=== PATIENT | male | born 1950 | race Caucasian/White ===

== ENCOUNTER 2018-11-08 12:23 | Emergency (ER) | payer MEDICARE ==
[2018-11-08] MEDS ORDERED: NS(*) 0.9% 1000 ML BAG 1,000 ML IV ONE (12:29)
[2018-11-08] MEDS ORDERED: ASPIRIN 81 MG CHEW PO ONE (12:30)
[2018-11-08] MEDS ORDERED: STEMI KIT(*) 0 EA ONE (12:33)
--- NOTE | 2018-11-08 12:36 | EKG ---
[place]AC[place] [facility] [place] NAME: ROGER DE : [id number] MR: [id number] V: [id number] EXAM DATE: ORDERING PHYSICIAN: KATHARINE VAUGHN TECHNOLOGIST: Test Reason : Blood Pressure : / mmHG Vent. Rate : 105 BPM Atrial Rate : 105 BPM P-R Int : 184 ms QRS Dur : 126 ms QT Int : 368 ms P-R-T Axes : 057 147 049 degrees QTc Int : 486 ms Sinus tachycardia Right bundle branch block Left posterior fascicular block Bifascicular block Inferior infarct , possibly acute ACUTE NV Abnormal ECG No previous ECGs available Confirmed by KELLI ARCHULETA ([id number]) on 11/08/2018 3:04:43 PM Referred By: Confirmed By:KELLI ARCHULETA
--- NOTE | 2018-11-08 12:43 | ER Report ---
History and Physical Time Seen By MD: 12:30 HPI/ROS CHIEF COMPLAINT: Chest pain HISTORY OF PRESENT ILLNESS: 68-year-old male patient presents to emergency room with complaint of chest pain. Patient states that he started having chest pain this morning when he woke up. Patient states he started having some discomfort with breathing last night starting about 10:30 or 11. He states that he felt significant worse when he was lying down. He says he feels better when he sitting up. He states that there is not been anything that seems to make the pain better or worse since this morning. He did go see a primary care provider, as he is trying to avoid coming to the emergency room. However he was referred to the emergency room. Patient denies any fevers, chills, nausea, vomiting or diaphoresis. Patient states he has not taken any medication for this. He did take some medication for his blood pressure prior to arrival. REVIEW OF SYSTEMS: Respiratory: No cough, no dyspnea. Cardiovascular: As noted above Gastrointestinal: No vomiting, no abdominal pain. Musculoskeletal: No back pain. Allergies: Coded Allergies: No Known Drug Allergies (Unverified , 05/28/14) Home Meds Active Scripts Lisinopril (LISINOPRIL) 20 Mg Tablet, 1 TAB PO QDAY, #90 TAB 3 Refills Prov:MARSHA OJEDA MD 07/06/18 Simvastatin (SIMVASTATIN) 40 Mg Tablet, 1 TAB PO QHS, #90 TAB 3 Refills Prov:MARSHA OJEDA MD 07/06/18 Discontinued Scripts Ketoconazole (KETOCONAZOLE) 15 Gm Cream..g., 1 JERAMIE TP BID for 30 Days, #1 TUBE 2 Refills Prov:YULISSA RIVERA NPC 08/03/18 Triamcinolone Acetonide 0.1% Oint 15 Gm Tube (TRIAMCINOLONE ACETONIDE 0.1% 15 GM TUBE) 15 Gm Oint...g., 30 GM TP BID for 30 Days, #1 TUBE 2 Refills Prov:YULISSA RIVERA NPC 08/03/18 Hydrocortisone 2.5 % 30 GM CREAM (Hydrocortisone 2.5 % 30 GM CREAM) 2.5 % Cream.appl, 1 JERAMIE TP BID for 30 Days, #1 GM 1 Refill Prov:YULISSA RIVERA NPC 06/26/18 Clobetasol Propionate (CLOBETASOL PROPIONATE) 15 Gm Oint...g., 1 JERAMIE TP BID for 30 Days, #60 G 1 Refill Prov:YULISSA RIVERA NPC 02/09/18 Econazole Nitrate (ECONAZOLE NITRATE) 15 Gm Cream..g., 1 APPLIC TOP BID for 30 Days, #85 GM 1 Refill Prov:YULISSA RIVERA NPC 07/04/17 Ammonium Lactate (Ammonium Lactate) 12 % Lotion, 1 JERAMIE TOP BID PRN for dry skin, #1 BOTTLE 1 Refill Prov:MARSHA OJEDA MD 03/08/17 Past Medical/Surgical History Patient has a past medical history of hypertension, hyperlipidemia, anxiety, alcohol use, marijuana use. Patient denies any surgical history. Reviewed Nurses Notes: Yes Smoking Status: Current: Every Day Smoker Exposure to Second Hand Smoke?: Yes Constitutional Vital Sign - Last 24 Hours 11/08/18 11/08/18 11/08/18 11/08/18 12:23 12:27 12:28 12:33 Pulse ??? 108 103 Resp 10 B/P (MAP) 162/96 (118) Pulse Ox 90 94 11/08/18 11/08/18 11/08/18 11/08/18 12:38 12:41 12:41 12:41 Temp 98.2 Pulse 104 99 Resp 13 16 B/P (MAP) 155/92 155/92 (113) Pulse Ox 96 96 O2 Delivery Nasal Cannula O2 Flow Rate 3.0 11/08/18 11/08/18 11/08/18 11/08/18 12:43 12:43 12:45 12:47 Pulse 102 Resp 12 B/P (MAP) 146/94 (111) 145/90 (108) Pulse Ox 96 O2 Flow Rate 4.0 11/08/18 11/08/18 11/08/18 11/08/18 12:48 12:51 12:53 12:57 Pulse 99 118 Resp 12 18 B/P (MAP) 124/91 (102) 132/88 (103) Pulse Ox 96 95 11/08/18 11/08/18 11/08/18 11/08/18 12:58 13:00 13:03 13:08 Pulse 113 110 106 Resp 11 28 14 B/P (MAP) 123/85 (98) Pulse Ox 94 96 95 11/08/18 11/08/18 11/08/18 11/08/18 13:09 13:14 13:15 13:19 Pulse 112 109 Resp 11 12 B/P (MAP) 132/86 (101) 115/87 (96) Pulse Ox 94 94 11/08/18 11/08/18 11/08/18 13:24 13:29 13:30 Pulse 99 99 Resp 8 12 B/P (MAP) 131/82 (98) Pulse Ox 95 95 Physical Exam General Appearance: The patient is alert, has no immediate need for airway protection and no current signs of toxicity. Respiratory: Chest is non tender, lungs are clear to auscultation. Cardiac: regular rate and rhythm Gastrointestinal: Abdomen is soft and non tender, no masses, bowel sounds normal. Musculoskeletal: Neck: Neck is supple and non tender. Extremities have full range of motion and are non tender. Skin: No rashes or lesions. DIFFERENTIAL DIAGNOSIS: After history and physical exam differential diagnosis was considered for chest pain including but not limited to myocardial ischemia, pericarditis pulmonary embolus, chest wall pain, pleural inflammation and pulmonary infectious causes. Medical Decision Making Data Points Result Diagram: 11/08/18 1234 11/08/18 1234 Laboratory Hematology Test 11/08/18 12:34 Red Blood Count 4.93 M/uL (4.00-5.60) Mean Corpuscular Volume 106.2 fL (80.0-96.0) Mean Corpuscular Hemoglobin 36.7 pg (26.0-33.0) Mean Corpuscular Hemoglobin Concent 34.6 g/dL (32.0-36.0) Red Cell Distribution Width 13.1 % (11.5-14.5) Mean Platelet Volume 7.2 fL (7.2-11.1) Neutrophils (%) (Auto) 81.3 % (39.4-72.5) Lymphocytes (%) (Auto) 6.1 % (17.6-49.6) Monocytes (%) (Auto) 12.1 % (4.1-12.4) Eosinophils (%) (Auto) 0.0 % (0.4-6.7) Basophils (%) (Auto) 0.5 % (0.3-1.4) Nucleated RBC Relative Count (auto) 0.0 /100WBC Neutrophils # (Auto) 9.7 K/uL (2.0-7.4) Lymphocytes # (Auto) 0.7 K/uL (1.3-3.6) Monocytes # (Auto) 1.4 K/uL (0.3-1.0) Eosinophils # (Auto) 0.0 K/uL (0.0-0.5) Basophils # (Auto) 0.1 K/uL (0.0-0.1) Nucleated RBC Absolute Count (auto) 0.00 K/uL Peripheral Blood Smear No Y/N Activated Partial Thromboplast Time 32 seconds (23-35) Sodium Level 132 mmol/L (137-145) Potassium Level 4.2 mmol/L (3.5-5.0) Chloride Level 97 mmol/L (98-107) Carbon Dioxide Level 22 mmol/L (22-30) Blood Urea Nitrogen 8 mg/dl (9-21) Creatinine 0.60 mg/dl (0.66-1.25) Glomerular Filtration Rate Calc > 60.0 Random Glucose 118 mg/dl (75-110) Calcium Level 9.6 mg/dl (8.4-10.2) Total Bilirubin 0.9 mg/dl (0.2-1.3) Aspartate Amino Transf (AST/SGOT) 45 U/L (0-35) Alanine Aminotransferase (ALT/SGPT) 45 U/L (0-56) Alkaline Phosphatase 120 U/L (0-126) Troponin I < 0.012 ng/ml Total Protein 8.5 g/dl (6.3-8.2) Albumin 4.9 g/dl (3.5-5.0) Serum Alcohol 24 mg/dl Chemistry Test 11/08/18 12:34 White Blood Count 11.9 k/uL (4.5-11.0) Red Blood Count 4.93 M/uL (4.00-5.60) Hemoglobin 18.1 g/dL (14.0-18.0) Hematocrit 52.3 % (42.0-52.0) Mean Corpuscular Volume 106.2 fL (80.0-96.0) Mean Corpuscular Hemoglobin 36.7 pg (26.0-33.0) Mean Corpuscular Hemoglobin Concent 34.6 g/dL (32.0-36.0) Red Cell Distribution Width 13.1 % (11.5-14.5) Platelet Count 178 K/uL (150-450) Mean Platelet Volume 7.2 fL (7.2-11.1) Neutrophils (%) (Auto) 81.3 % (39.4-72.5) Lymphocytes (%) (Auto) 6.1 % (17.6-49.6) Monocytes (%) (Auto) 12.1 % (4.1-12.4) Eosinophils (%) (Auto) 0.0 % (0.4-6.7) Basophils (%) (Auto) 0.5 % (0.3-1.4) Nucleated RBC Relative Count (auto) 0.0 /100WBC Neutrophils # (Auto) 9.7 K/uL (2.0-7.4) Lymphocytes # (Auto) 0.7 K/uL (1.3-3.6) Monocytes # (Auto) 1.4 K/uL (0.3-1.0) Eosinophils # (Auto) 0.0 K/uL (0.0-0.5) Basophils # (Auto) 0.1 K/uL (0.0-0.1) Nucleated RBC Absolute Count (auto) 0.00 K/uL Peripheral Blood Smear No Y/N Activated Partial Thromboplast Time 32 seconds (23-35) Glomerular Filtration Rate Calc > 60.0 Calcium Level 9.6 mg/dl (8.4-10.2) Total Bilirubin 0.9 mg/dl (0.2-1.3) Aspartate Amino Transf (AST/SGOT) 45 U/L (0-35) Alanine Aminotransferase (ALT/SGPT) 45 U/L (0-56) Alkaline Phosphatase 120 U/L (0-126) Troponin I < 0.012 ng/ml Total Protein 8.5 g/dl (6.3-8.2) Albumin 4.9 g/dl (3.5-5.0) Serum Alcohol 24 mg/dl Coagulation Test 11/08/18 12:34 Activated Partial Thromboplast Time 32 seconds Toxicology Test 11/08/18 12:34 Serum Alcohol 24 mg/dl EKG/Imaging EKG Interpretation 12 lead EKG: Rhythm: Sinus tachycardia with a ventricular rate of 105 bpm [place]: normal QRS: Right bundle branch block ST segments: Patient has ST elevation in lead II and aVF, patient has ST depression in aVR, V1 and V2. Imaging EXAMINATION: Portable AP Chest HISTORY: Chest pain. COMPARISON: None. FINDINGS: The lungs are clear. No focal consolidation or pleural effusion. No pneumothor ax. Normal cardiomediastinal silhouette, with normal heart size and pulmonary vascularity. Aortic calcification. Visualized osseous structures are unremarkable. IMPRESSION: No evidence of acute cardiopulmonary disease. Report Dictated By: Pollo Garcia MD at 11/08/2018 1:43 PM Report E-Signed By: Pollo Garcia MD at 11/08/2018 1:43 PM ED Course/Re-evaluation ED Course Patient was admitted to exam room, history and physical were obtained. Differential diagnoses were considered. On examination lungs are clear, heart is regular, abdomen soft nontender. Patient does appear to be anxious. An IV was started, a CBC, CMP, troponin, EKG were done. Patient had an elevated MCV, AST was slightly elevated 45, troponin was undetectable. EKG did show ST elevation in aVF and lead 2, as well as ST depression in aVR, V1 and V2. At that time I discussed the case with Dr. Paniagua, bung driver at [facility], he agreed to accept the patient for admission. He recommended treating with a 5000 unit bolus of heparin, nitroglycerin 1 and Plavix 600 mg. If he has persistent pain he can then be put on a nitro drip of 30 mcg/m. After treating the patient with the heparin and the nitroglycerin patient states that his pain was gone. On arrival to the emergency room he rated his pain a 5 out of 10. Patient did receive 4 mg of morphine IV. Patient will be transferred via helicopter. I discussed this with the patient and his significant other. They verbalized understanding and agreement with plan. Decision to Disposition Date: November 08, 2018 Decision to Disposition Time: 13:09 Depart Departure Latest Vital Signs Vital Signs Date Time Temp Pulse Resp B/P (MAP) Pulse Ox O2 Delivery O2 Flow Rate FiO2 11/08/18 13:30 131/82 (98) 11/08/18 13:29 99 12 95 11/08/18 12:43 4.0 11/08/18 12:41 98.2 Nasal Cannula Impression: Primary Impression: [facility] (myocardial infarction) Condition: Condition Unchanged Disposition: XFER TO [facility] Referrals: MARSHA OJEDA MD (PCP) Problem Qualifiers Primary Impression: [facility] (myocardial infarction) Myocardial infarction type: ST elevation myocardial infarction Involved coronary artery: other inferior wall coronary artery Qualified Codes: I21.19 - ST elevation (STEMI) myocardial infarction involving other coronary artery of inferior wall KATHARINE VAUGHN November 08, 2018 12:43
[2018-11-08 12:47] LABS: PLATELET COUNT, AUTOMATED 178 K/uL (150-450)
[2018-11-08] MEDS ORDERED: HEPARIN SOD/D5W 25000/250 ML 250 ML IV ONE ×2 (12:47→13:00)
[2018-11-08] MEDS ORDERED: HEPARIN (PORC) 5000 UN/ML VIAL IVP ONE (12:50)
[2018-11-08] MEDS ORDERED: NITROGLYCERIN 0.4 MG SUBL SL ONE (12:50)
[2018-11-08] MEDS ORDERED: MORPHINE 4 MG/ML SDV IVP ONE (12:50)
[2018-11-08] MEDS ORDERED: CLOPIDOGREL BISULFATE 75MG TAB PO ONE (12:55)
[2018-11-08] MEDS ORDERED: CLOPIDOGREL BISULFATE 75MG TAB ONE (12:56)
[2018-11-08] MEDS ORDERED: HEPARIN* SOD/D5W 25000 U/500ML 500 ML IV SCH (13:15)
[2018-11-08 13:30] VITALS: BP 131/82
--- NOTE | 2018-11-08 13:49 | RADIOLOGY IMAGING REPORT ---
FACILITY: [facility] PATIENT NAME: Peewee Jackosn : 1950 MR: [id number] V: [id number] EXAM DATE: ORDERING PHYSICIAN: KATHARINE VAUGHN TECHNOLOGIST: Location: [facility] Patient: Peewee Jackson : 1950 Visit/Account:[id number] Date of Sevice: 11/08/2018 EXAMINATION: Portable AP Chest HISTORY: Chest pain. COMPARISON: None. FINDINGS: The lungs are clear. No focal consolidation or pleural effusion. No pneumothorax. Normal cardiomediastinal silhouette, with normal heart size and pulmonary vascularity. Aortic calcif ication. Visualized osseous structures are unremarkable. IMPRESSION: No evidence of acute cardiopulmonary disease. Report Dictated By: Pollo Garcia MD at 11/08/2018 1:43 PM Report E-Signed By: Pollo Garcia MD at 11/08/2018 1:43 PM WSN:[id number]
== END 2018-11-08 13:54 | disposition short-term general hospital (02) ==
LOC: ER 12:47
DX: I21.19 ST elevation (STEMI) myocardial infarction involving other coronary artery of inferior wall (principal)
CPT/HCPCS: 71045; 84484; 85025; 85730; 93005; 96365; 96375; 99285; A9270; G0480; J1644; J2270; J7030; 80320; 82040; 82247; 82310; 82374; 82435; 82565; 82947; 84075; 84132; 84155; 84295; 84450; 84460; 84520

== ENCOUNTER → 2018-11-08 | Outpatient (REF) ==
[~2018-11-08] MED LIST: ALPR-445 PO; ALPR-459 PO; AZIT-1 PO; CEPH500C24 PO; CEPH500T7 PO; CLOB15CR22 TP; CLOB15OI16 TP; ECON15CR10 TOP; ECON15CR10 TP; ESCI20TA8 PO; FLU45SYR25 IM ONLY; FLU60SYR30 IM ONLY; HYDR30CR10 TP; KETC15T TP; LISI-351 PO; LISI-355 PO; LISI20TA29 PO; PNEU0.5D3 IM; SIMV-54 PO; TRIA15OI20 TP; [UNRECOGNIZED DRUG - CODE] TOP
== END ==
LOC: AMB 13:17
PROVIDERS: ATTEND Nurse Practitioner
DX: Z02.9 Encounter for administrative examinations, unspecified (principal)